=== PATIENT | male | born 1980 | race American Indian/Alaskan Native ===

== ENCOUNTER 2017-08-10 02:32 | Emergency (ER) | payer OTHER ==
[2017-08-10 03:02] LABS: Basophils # (Auto) 0.1 K/mm3 (0.0-0.1); Basophils % (Auto) 0.5 % (0.0-1.8); Eosinophils % (Auto) 0.3 % (0.0-4.3); Hematocrit 48.3 % (35.5-45.6); Hemoglobin 16.2 gm/dl (11.8-15.2); Lymphocytes # (Auto) 2.7 K/mm3 (1.2-5.4); Mean Corpuscular HGB Conc 34 % (32-34); Mean Corpuscular Hemoglobin 30 pg (28-32); Mean Corpuscular Volume 88 fl (84-94); Monocytes % (Auto) 9.9 % (0.0-7.3); Platelet Count 278 K/mm3 (140-440); Red Blood Count 5.51 M/mm3 (3.65-5.03); Red Cell Distribution Width 12.4 % (13.2-15.2)
[2017-08-10 03:27] LABS: BUN/Creatinine Ratio 13; Blood Urea Nitrogen 12 mg/dL (9-20); Calcium 9.5 mg/dL (8.4-10.2); Hemolysis Index 33
[2017-08-10 05:25] LABS: Bilirubin,Urine NEG (Negative); Blood,Urine SM (Negative); Color,Urine Yellow (Yellow); Mucus,Urine 3+ /HPF
[2017-08-10] MEDS ORDERED: ALUM-MAG HYDROX-SIMETH 200-200-20MG/5ML PO ONE (07:51)
[2017-08-10] MEDS ORDERED: LIDOCAINE VISCOUS 2% PO ONE (07:51)
[2017-08-10] MEDS ORDERED: APRESOLINE IV ONE (07:51)
[2017-08-10] MEDS ORDERED: PEPCID IV ONE (07:52)
[2017-08-10] MEDS ORDERED: ZOFRAN IV ONE (07:52)
[2017-08-10] MEDS ORDERED: TYLENOL #3 PO ONE (07:52)
--- NOTE | 2017-08-10 07:58 | Emergency Department Report ---
HPI - General Chief Complaint: Back Pain/Injury Time Seen by Provider: 08/10/17 07:06 - [facility] HPI: Patient is a 36-year-old male presents for evaluation of chest pain and abdominal pain. The patient reports lower midsternal chest pain and epigastric abdominal pain for the past 3 days, burning in quality, moderate in severity, radiating to the right upper quadrant and right flank. He reports associated nausea and nonbilious, nonbloody emesis. He says he has experienced the same symptoms on and off for the past 3 years. He was informed of the evaluation in [facility] [place] that his symptoms were secondary to acid reflux. The patient denies fever, chills, night sweats, cough, dyspnea, hemoptysis, syncope, hematemesis, trauma to the chest or abdomen, diarrhea, blood in the stool, dark tarry stool, dysuria, hematuria, flank pain, genital discharge, inability to pass flatus. ED Past Medical Hx - Past Medical History Previous Medical History?: Yes Additional medical history: ulcers - Surgical History Past Surgical History?: Yes Additional Surgical History: rt leg - Social History Smoking Status: Never Smoker Substance Use Type: None - Medications Home Medications: Home Medications Medication Instructions Recorded Confirmed Last Taken Type Omeprazole Magnesium [PriLOSEC Otc] 20 mg PO QDAY #14 tablet. 08/10/17 Unknown Rx traMADol [Ultram 50 MG tab] 50 mg PO Q6HR PRN #15 tablet 08/10/17 Unknown Rx ED Review of Systems ROS: Stated complaint: BACK PAIN Other details as noted in HPI Constitutional: denies: fever ENT: denies: throat or neck pain Respiratory: denies: cough, shortness of breath Cardiovascular: reports: chest pain Endocrine: denies unexplained weight loss or gain Gastrointestinal: reports: abdominal pain, nausea Genitourinary: denies: dysuria Musculoskeletal: denies: leg swelling Skin: denies: rash Neurological: denies: headache Hematological/Lymphatic: denies: easy bleeding or easy bruising Psych: denies sadness or hopelessness Physical Exam - Physical Exam Vital Signs: Vital Signs 08/10/17 08/10/17 08/10/17 02:38 05:39 07:00 Temperature 97.5 F L 97.7 F Pulse Rate 94 H 78 83 Respiratory 18 13 15 Rate Blood Pressure 126/97 144/97 Blood Pressure 121/91 [Left] O2 Sat by Pulse 97 100 99 Oximetry Physical Exam: General: well-nourished, well-developed, no acute distress Head: Normocephalic, atraumatic Eyes: normal sclera ENT: Mucous membranes are pale and dry Neck: No neck stiffness, no cervical adenopathy Respiratory: Breath sounds equal bilaterally, no wheezing, rales, or rhonchi Cardio: S1 and S2 present, no murmurs, rubs, gallops, capillary refill is delayed Abdomen: Normoactive bowel sounds, soft abdomen, epigastric tenderness to palpation present, no rigidity, no guarding or rebound tenderness Chest WALL/Back: No tenderness to palpation of the chest wall, no CVA tenderness with palpation or percussion of the flanks bilaterally Musc: No pitting edema Skin: No rash Neuro: no facial drooping, normal speech Psych: Normal affect ED Course Vital Signs 08/10/17 08/10/17 08/10/17 02:38 05:39 07:00 Temperature 97.5 F L 97.7 F Pulse Rate 94 H 78 83 Respiratory 18 13 15 Rate Blood Pressure 126/97 144/97 Blood Pressure 121/91 [Left] O2 Sat by Pulse 97 100 99 Oximetry ED Medical Decision Making - Lab Data Result diagrams: 08/10/17 02:48 08/10/17 02:48 - Medical Decision Making The patient was seen and examined by myself. The patient is placed on a cardiac technician and continuous pulse ox. On initial evaluation, the patient was found to be in no distress. EKG was negative for findings suggestive of acute cardiac infarct. Labs and imaging are obtained. The patient is giv IV Zofran for nausea, IV hydralazine for his elevated blood pressure, and a GI cocktail and Tylenol 3 for his pain. Chest x-ray is negative for pneumothorax, focal consolidation, pulmonary vascular congestion, pleural effusion, or other obvious acute cardiopulmonary disease process. Lab results were non-concerning including levels of troponin, WBC, hemoglobin, hematocrit, electrolytes, renal function, LFTs, lipase, and urinalysis. The patient was reevaluated and reported that their symptoms were markedly improved. As the patient has a CHIARA risk score less than 2, and a well's score less than 2, the patient is at low risk of ACS or pulmonary emboli etiology of their symptoms. The patient is stable for discharge with outpatient follow-up. The patient is given follow-up and return instructions. The patient expressed understanding and agreed with the plan. The patient is discharged in stable condition. Critical care attestation.: If time is entered above; I have spent that time in minutes in the direct care of this critically ill patient, excluding procedure time. ED Disposition Clinical Impression: Acute chest pain, Acute epigastric pain Disposition: TO HOME OR SELFCARE Is pt being admited?: No Does the pt Need Aspirin: No Condition: Stable Instructions: Chest Pain (ED), Gastroesophageal Reflux Disease (ED), Diet for Ulcers and Gastritis (ED) Referrals: JOSEPHINE MANZO MD [Primary Care Provider] - 3-5 Days Time of Disposition: 11:07
--- NOTE | 2017-08-10 08:21 | XRay Report ---
FINAL REPORT EXAM: XR CHEST 1V AP HISTORY: chest pain TECHNIQUE: AP portable view(s) of the chest obtained. PRIORS: None. FINDINGS: No mediastinal shift. Cardiac silhouette is not enlarged. No pneumothorax, effusion, or focal pulmonary opacity identified. No acute skeletal findings. IMPRESSION: No acute pulmonary finding identified.
[2017-08-10 10:03] LABS: Alanine Aminotransferase 13 units/L (7-56); Albumin 4.6 g/dL (3.9-5); Bilirubin,Direct 0.3 mg/dL (0-0.2); Lipase 32 units/L (13-60)
[2017-08-10 12:06] VITALS: BP 108/69
== END 2017-08-10 12:04 | disposition home or self-care (01) ==
LOC: ED 02:32
DX: R07.89 Other chest pain (principal); R10.13 Epigastric pain; R11.2 Nausea with vomiting, unspecified; Z91.018 Allergy to other foods; Z88.6 Allergy status to analgesic agent
CPT/HCPCS: 36415; 71045; 80048; 80074; 81001; 83690; 84484; 85025; 96374; 96375; 99284; J0360; J2405